=== PATIENT | female | born 1990 | race African-American/Black ===

== ENCOUNTER 2022-06-14 11:30 | Emergency (ER) | payer MEDICAID ==
[~2022-06-14] VITALS: Ht 170.2 cm; Wt 68.5 kg
[2022-06-14 11:43] VITALS: BP 102/68
--- NOTE | 2022-06-14 11:49 | NUR ---
31/F WALKED IN C/O NAUSEA AND VOMITING. PT REPORTS TESTING POSITIVE FOR AT HOME ON 03/23/22. AAO4, AMBULATORY, VITALS STABLE, A1. DENIES ANY PAIN AT THIS TIME BUT WANTS TO CONFIRM AT THIS TIME. PMH: MEGAN
--- NOTE | 2022-06-14 12:16 | NUR ---
US AT BEDSIDE
--- NOTE | 2022-06-14 13:42 | NUR ---
URINE COLLECTED AND SENT TO LAB
[2022-06-14 13:49] LABS: APPEARANCE,URINE CLEAR (CLEAR); BILIRUBIN,URINE NEGATIVE (NEGATIVE); BLOOD, URINE NEGATIVE (NEGATIVE); COLOR,URINE YELLOW (YELLOW); LEUKOCYTE ESTERASE ,URINE NEGATIVE (NEGATIVE); NITRITE, URINE NEGATIVE (NEGATIVE); PH,URINE 7.5 (5.0-9.0); UGLUCOSE NEGATIVE (NEGATIVE)
[2022-06-14 14:00] VITALS: BP 115/72
[2022-06-14] MEDS ORDERED: [UNRECOGNIZED DRUG - CODE] PO (14:48)
== END 2022-06-14 14:55 | disposition home or self-care (01) ==
LOC: MED 11:30
DX: O21.8 Other vomiting complicating pregnancy (principal); O26.899 Other specified pregnancy related conditions, unspecified trimester; R10.9 Unspecified abdominal pain; Z79.899 Other long term (current) drug therapy
CPT/HCPCS: 36415; 76801; 81003; 81025; 84702; 99284; Q0092

== ENCOUNTER 2024-03-17 21:13 | Emergency (ER) | payer MEDICAID ==
[~2024-03-17] VITALS: Ht 170.2 cm; Wt 63.0 kg
[~2024-03-17 21:13] MED LIST: [UNRECOGNIZED DRUG - CODE] PO
[2024-03-17 21:21] VITALS: BP 124/78; PULSE 67; RESP 16; TEMP 97; O2SAT 100
[2024-03-17 22:31] LABS: APPEARANCE,URINE CLEAR (CLEAR); BILIRUBIN,URINE NEGATIVE (NEGATIVE); BLOOD, URINE NEGATIVE (NEGATIVE); COLOR,URINE YELLOW (YELLOW); LEUKOCYTE ESTERASE ,URINE 2+ (NEGATIVE); NITRITE, URINE NEGATIVE (NEGATIVE); PROTEIN,URINE NEGATIVE (NEGATIVE); UGLUCOSE NEGATIVE (NEGATIVE)
[2024-03-17 22:36] LABS: BACTERIA,URINE >30 (MANY) /HPF (None Seen); MUCUS,URINE 1+ /LPF (None Seen); RBC,URINE 0-5 /HPF (0-5); SQUAMOUS EPITHELIAL CELL,UR 4-10 (MOD) /LPF (0-3 (FEW))
[2024-03-17] MEDS ORDERED: AMOX-1230 PO (22:59)
[2024-03-17] MEDS ORDERED: [UNRECOGNIZED DRUG - CODE] PO (23:19)
[2024-03-17 23:32] VITALS: BP 124/78; PULSE 67; RESP 16; TEMP 97; O2SAT 100
== END 2024-03-17 23:32 | disposition home or self-care (01) ==
LOC: MED 21:13
DX: O23.41 Unspecified infection of urinary tract in pregnancy, first trimester (principal); N39.0 Urinary tract infection, site not specified; O26.891 Other specified pregnancy related conditions, first trimester; F12.90 Cannabis use, unspecified, uncomplicated; R10.2 Pelvic and perineal pain; Z3A.01 Less than 8 weeks gestation of pregnancy; Z79.899 Other long term (current) drug therapy
CPT/HCPCS: 36415; 76801; 81001; 81025; 84702; 87086; 99284; Q0092